=== PATIENT | male | born 1970 | race American Indian/Alaskan Native ===

== ENCOUNTER 2017-09-26 10:39 | Outpatient (CLI) | payer OTHER ==
--- NOTE | 2017-09-26 17:27 | Cat Scan Report ---
FINAL REPORT EXAM: CT ABDOMEN WO/W CON HISTORY: RENAL CYSTS TECHNIQUE: CT examination of the abdomen before and after IV contrast PRIORS: None. FINDINGS: No renal calculus or hydronephrosis. No calculus or distention in the included ureteral segments. Normal-appearing right kidney. Left kidney contains focal cortical depression in the upper posterolateral aspect. In the region of cortical depression, there is a nonspecific hypodense lesion with overall measurements of 14 x 16 mm. This may reflect 2 adjacent lesions with a medial cyst measuring 11 mm and a separate lateral lesion measuring 9 mm. The 11 mm cyst contains average CT density of 17 and minimum density of 2. The lateral hypodense lesion contains average density of 21 and minimum density of-24. This may be an angiomyolipoma. There may be a component of scarring given cortical depression. No lesion calcification. No other renal lesion. Normal-appearing liver, gallbladder, adrenals, pancreas, and spleen. Intact normal caliber abdominal aorta and IVC. No retroperitoneal adenopathy. No mesenteric mass. Intact anterior abdominal wall. Normal-appearing stomach and duodenum. No small bowel or large bowel distention. No gross ascites or free air. Normal-appearing cecum, terminal ileum, and appendix. IMPRESSION: Nonspecific lesion in upper pole left kidney may be 2 adjacent lesions. The medial-most is suggestive of a simple cyst. The lateral lesion is nonspecific and slightly more complex but contains a minimum density of-24. Possibilities include renal cortical scar and/or angiomyolipoma. Follow-up considerations include renal MRI, with IV contrast if possible, the and/or renal CT in 6 months to ensure stability
== END 2017-09-26 10:40 | disposition home or self-care (01) ==
LOC: CT 10:39
PROVIDERS: ATTEND Family Medicine
DX: N28.89 Other specified disorders of kidney and ureter (principal)
CPT/HCPCS: 74170; Q9967